=== PATIENT | female | born 1990 | race Caucasian/White ===

== ENCOUNTER 2020-11-23 17:51 | Outpatient (CLI) | payer OTHER ==
[~2020-11-23 17:51] MED LIST: DOCUSATE SODIU100 MG PO; Mylicon 125MG PO; NABUMETONE750 MG PO; OXYC1TAB9 PO; PRENATAL TABLE1 EACH PO; PREPLUS CA-FE1 EACH PO
[2020-11-25] MEDS ORDERED: CHILDREN'S ASPI81 MG PO (03:42)
== END 2020-11-24 16:01 | disposition home or self-care (01) ==
LOC: OBS/DEL 17:51
PROVIDERS: ATTEND Obstetrics & Gynecology
DX: O99.613 Diseases of the digestive system complicating pregnancy, third trimester (principal); K80.80 Other cholelithiasis without obstruction; O26.893 Other specified pregnancy related conditions, third trimester; R10.11 Right upper quadrant pain; Z3A.33 33 weeks gestation of pregnancy

== ENCOUNTER 2020-12-26 20:41 | Inpatient (IN) | payer OTHER ==
[~2020-12-26] VITALS: Ht 149.9 cm; Wt 3.2 kg
[~2020-12-26 20:41] MED LIST changes: +CHILDREN'S ASPI81 MG PO
[2020-12-30] MEDS ORDERED: SIMETHICONE125 M1 PO (12:40)
[2020-12-30] MEDS ORDERED: PREPLUS CA-FE1 EACH PO (12:40)
[2020-12-30] MEDS ORDERED: IBUPROFEN800 MG PO (12:40)
[2020-12-30] MEDS ORDERED: COLACE100 MG PO (12:40)
== END 2020-12-30 17:14 | disposition home or self-care (01) | DRG 785 ==
LOC: LDR 20:41 → O/R 12-27 08:51 → OB/GYN 12-27 10:09 → SURG-SUITE 12-28 16:48
PROVIDERS: ADMIT Obstetrics & Gynecology; ATTEND Obstetrics & Gynecology
PROC: 0UB70ZZ Excision of Bilateral Fallopian Tubes, Open Approach (ICD-10-PCS; 2020-12-27)
PROC: 0UB60ZX Excision of Left Fallopian Tube, Open Approach, Diagnostic (ICD-10-PCS; 2020-12-27)
PROC: 4A1HXFZ Monitoring of Products of Conception, Cardiac Rhythm, External Approach (ICD-10-PCS; 2020-12-27)
PROC: 10D00Z1 Extraction of Products of Conception, Low, Open Approach (ICD-10-PCS; principal; 2020-12-27 06:15)
DX: O65.5 Obstructed labor due to abnormality of maternal pelvic organs (principal); O34.211 Maternal care for low transverse scar from previous cesarean delivery; O34.83 Maternal care for other abnormalities of pelvic organs, third trimester; N83.8 Other noninflammatory disorders of ovary, fallopian tube and broad ligament; O99.62 Diseases of the digestive system complicating childbirth; K80.20 Calculus of gallbladder without cholecystitis without obstruction; Z30.2 Encounter for sterilization; Z3A.38 38 weeks gestation of pregnancy; Z37.0 Single live birth

== ENCOUNTER → 2021-01-29 | Outpatient (CLI) | payer OTHER ==
[~2021-01-29] MED LIST changes: +COLACE100 MG PO; +IBUPROFEN800 MG PO; +SIMETHICONE125 M1 PO
== END | disposition home or self-care (01) ==
LOC: MRI 08:23
PROVIDERS: ATTEND Specialist
DX: K80.10 Calculus of gallbladder with chronic cholecystitis without obstruction (principal)
CPT/HCPCS: 74181

== ENCOUNTER 2021-09-19 05:21 | Day surgery (SDC) | payer OTHER ==
[~2021-09-19 05:21] MED LIST changes: +OMEPRAZOLE-BIC1 EAC1 PO
== END 2021-09-19 13:00 | disposition home or self-care (01) ==
LOC: CIR.AMB 05:21
PROVIDERS: ATTEND Specialist
DX: K81.1 Chronic cholecystitis (principal); K42.0 Umbilical hernia with obstruction, without gangrene; J45.909 Unspecified asthma, uncomplicated; E03.9 Hypothyroidism, unspecified; E16.2 Hypoglycemia, unspecified